=== PATIENT | male | born 1995 | race Caucasian/White ===

== ENCOUNTER 2018-11-02 04:01 | Emergency (ER) | payer BC ==
[~2018-11-02] VITALS: Ht 188 cm; Wt 84.1 kg
[2018-11-02 04:03] VITALS: BP 136/93; TEMP 97.6
[2018-11-02] MEDS ORDERED: AMOXICILLIN 50500 MG PO (04:42)
[2018-11-02] MEDS ORDERED: CIPRODEX OT (04:42)
[2018-11-02 05:05] VITALS: PULSE 98
== END 2018-11-02 05:05 | disposition home or self-care (01) ==
LOC: COL.ER 04:01
DX: H66.92 Otitis media, unspecified, left ear (principal); H60.92 Unspecified otitis externa, left ear